=== PATIENT | male | born 1995 | race Caucasian/White ===

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

== ENCOUNTER 2017-01-06 08:26 | Emergency (ER) | payer OTHER ==
[2017-01-06 08:40] VITALS: BP 142/88
--- NOTE | 2017-01-06 08:53 | UC ---
Throat Pain/Nasal Kyle HPI - HPI Summary HPI Summary: 21 year old male with sinus pressure. COUGH AND SORE THROAT SINCE Tuesday. RIGHT earache/feels clogged since yesterday. Denies fever/chills. Taking ibuprofen 800mg prn, last dose yesterday 1600 and using nasal decongestant prn. Pt states he finished taking keflex abx 2 days ago, tx for tooth infection. Has had some ear pressure and cough. People at work with colds. [ End ] - History of Current Complaint Chief Complaint: UCRespiratory Stated Complaint: COUGH,BILATERAL EAR COMPLAINT Time Seen by Provider: 01/06/17 08:44 Hx Obtained From: Patient Onset/Duration: Gradual Onset - Allergies/Home Medications Allergies/Adverse Reactions: Allergies Allergy/AdvReac Type Severity Reaction Status Date / Time Bee Venom Allergy Anaphylatic Verified 01/06/17 08:32 Shock PMH/Surg Hx/FS Hx/Imm Hx Previously Healthy: Yes - Surgical History Surgical History: Yes Surgery Procedure, Year, and Place: VSD repair 2009 - Family History Known Family History: Negative: Cardiac Disease, Hypertension - Social History Occupation: Employed Full-time Lives: With Family Alcohol Use: None Substance Use Type: None Smoking Status (MU): Never Smoked Tobacco - Immunization History Most Recent Influenza Vaccination: NONE 2016 Most Recent Tetanus Shot: UTD Most Recent Pneumonia Vaccination: N/A Review of Systems Constitutional: Fatigue ENT: Sore Throat, Ear Ache, Nasal Discharge, Sinus Congestion, Sinus Pain/ Tenderness Respiratory: Cough All Other Systems Reviewed And Are Negative: Yes Physical Exam Triage Information Reviewed: Yes Appearance: Well-Appearing, No Pain Distress, Well-Nourished Vital Signs: Initial Vital Signs Temp 98.5 F 01/06/17 08:33 Pulse 93 01/06/17 08:33 Resp 18 01/06/17 08:33 BP 142/88 01/06/17 08:33 Pulse Ox 99 01/06/17 08:33 Vital Signs Reviewed: Yes Eye Exam: Normal ENT Exam: Normal Dental Exam: Normal Neck exam: Normal Neck: Positive: 1 Respiratory Exam: Normal Cardiovascular Exam: Normal Musculoskeletal Exam: Normal Neurological Exam: Normal Psychological Exam: Normal Skin Exam: Normal Throat Pain/Nasal Course/Dx - Course Course Of Treatment: appears viral at this time. nofever. just finished the keflex for his tooth pain which is now resolved - Differential Dx/Diagnosis Differential Diagnosis/HQI/PQRI: Otitis Media, Pharyngitis, Sinusitis, URI Provider Diagnoses: Upper Respiratory Infection Discharge - Discharge Plan Condition: Good Disposition: HOME Prescriptions: Benzonatate [TESSALON 200 MG CAP] 200 mg PO TID #20 cap Patient Education Materials: Upper Respiratory Infection (ED) Forms: *Work Release Referrals: No Primary Care Phys,NOPCP [Primary Care Provider] - 4 Days (if not better) Additional Instructions: Please consider claritin and flonase in the morning and benadryl with Netti Pot in the PM.
== END 2017-01-06 09:14 | disposition home or self-care (01) ==
LOC: UCCORT 08:26
DX: J06.9 Acute upper respiratory infection, unspecified (principal); Z91.030 Bee allergy status
CPT/HCPCS: 99212; G0463

== ENCOUNTER 2018-06-13 17:53 | Emergency (ER) | payer OTHER ==
[2018-06-13 18:02] VITALS: BP 150/85
[2018-06-13 18:32] LABS: Influenza A Molecular NEGATIVE (Negative); Influenza B Molecular NEGATIVE (Negative)
--- NOTE | 2018-06-13 19:13 | UC ---
Respiratory Complaint HPI - HPI Summary HPI Summary: 23 yo male with the onset of vomiting and cough yesterday vomiting stopped but cough has persisted not productive no f/c CP (substernal) with cough no wheeze no myalgias or headache has post nasal drip - History of Current Complaint Chief Complaint: UCRespiratory Stated Complaint: CHEST PAIN/COUGH Time Seen by Provider: 06/13/18 18:10 Hx Obtained From: Patient Onset/Duration: Gradual Onset, Lasting Days Timing: Constant Severity Initially: Mild Severity Currently: Moderate Pain Intensity: 2 Pain Scale Used: 0-10 Numeric Character: Cough: Nonproductive Aggravating Factors: Deep Breaths, Other - talking Associated Signs And Symptoms: Positive: Edema - has long history of mild pretial edema, Nasal Congestion. Negative: Dyspnea, Fever, Chills, Pleuritic Chest Pain, Wheezing, Hemoptysis, Dizziness, Calf Pain, Calf Swelling, Hoarseness, Sinus Discomfort - Allergies/Home Medications Allergies/Adverse Reactions: Allergies Allergy/AdvReac Type Severity Reaction Status Date / Time bee venom protein (honey bee) Allergy Anaphylatic Verified 06/13/18 17:59 Shock PMH/Surg Hx/FS Hx/Imm Hx Previously Healthy: Yes Cardiovascular History: Other Other Cardiovascular History: VSD repair Respiratory History: Bronchitis - Surgical History Surgical History: Yes Surgery Procedure, Year, and Place: VSD repair 2009 - Family History Known Family History: Negative: Cardiac Disease, Hypertension - Social History Alcohol Use: None Substance Use Type: None Smoking Status (MU): Never Smoked Tobacco - Immunization History Most Recent Influenza Vaccination: NONE 2016 Most Recent Tetanus Shot: UTD Most Recent Pneumonia Vaccination: N/A Review of Systems All Other Systems Reviewed And Are Negative: Yes Constitutional: Positive: Negative Skin: Positive: Negative Eyes: Positive: Negative ENT: Positive: Other - PND Respiratory: Positive: Cough Cardiovascular: Positive: Negative Gastrointestinal: Positive: Negative Genitourinary: Positive: Negative Motor: Positive: Negative Neurovascular: Positive: Negative Musculoskeletal: Positive: Negative Neurological: Positive: Negative Physical Exam Triage Information Reviewed: Yes Appearance: Well-Appearing, No Pain Distress, Well-Nourished Vital Signs: Initial Vital Signs Temp 98.8 F 06/13/18 17:58 Pulse 106 06/13/18 17:58 Resp 26 06/13/18 17:58 BP 150/85 06/13/18 17:58 Pulse Ox 98 06/13/18 17:58 Eyes: Positive: Conjunctiva Clear ENT: Positive: Hearing grossly normal, Nasal congestion, TMs normal, Uvula midline. Negative: Nasal drainage, Tonsillar swelling, Tonsillar exudate, Trismus, Muffled voice, Hoarse voice, Dental tenderness, Sinus tenderness Dental Exam: Normal Neck: Positive: Supple, Nontender, No Lymphadenopathy Respiratory: Positive: Lungs clear, Normal breath sounds, No respiratory distress, No accessory muscle use Cardiovascular: Positive: RRR, No Murmur Musculoskeletal: Positive: ROM Intact, Edema @ - trace pretibial, no calf tenderness Neurological: Positive: Alert Psychological Exam: Normal Skin Exam: Normal Diagnostics - Radiology No standard instances Radiology Interpretation Completed By: ED Physician Summary of Radiographic Findings: NAD Respiratory Course/Dx - Course Course Of Treatment: POx 98% RA comment : normal/not hypoxic - Differential Dx/Diagnosis Provider Diagnosis: Cough in adult, Post-nasal drip, Elevated BP without diagnosis of hypertension Discharge - Sign-Out/Discharge Documenting (check all that apply): Patient Departure All imaging exams completed and their final reports reviewed: No - Discharge Plan Condition: Stable Disposition: HOME Prescriptions: Benzonatate CAP* [Tessalon CAP*] 100 - 200 mg PO TID PRN #28 cap PRN Reason: Cough Fluticasone NASAL SPRAY 50MCG* [Flonase NASAL SPRAY 50MCG*] 2 spray BOTH NARES BID #1 btl Patient Education Materials: Acute Cough (ED), Postnasal Drip (DC) Referrals: Flores Son PA [Physician Rn Night] - 3 Days Additional Instructions: your BP was a little high here recheck in 3 days if not better recheck sooner for fever or worsening symptoms flu test neg official XR reading pending - Billing Disposition and Condition Condition: STABLE Disposition: Home
--- NOTE | 2018-06-14 14:28 | UC ---
- Progress Note Progress Note: RADIOLOGY REPORT REVIEWED. NO EVIDENCE FOR ACTIVE CARDIOPULMONARY DISEASE. NO CHANGE IN MGMT. Course/Dx - Diagnoses Provider Diagnoses: Cough in adult, Post-nasal drip, Elevated BP without diagnosis of hypertension Discharge - Sign-Out/Discharge Documenting (check all that apply): Post-Discharge Follow Up All imaging exams completed and their final reports reviewed: Yes - Discharge Plan Condition: Stable Disposition: HOME Prescriptions: Benzonatate CAP* [Tessalon CAP*] 100 - 200 mg PO TID PRN #28 cap PRN Reason: Cough Fluticasone NASAL SPRAY 50MCG* [Flonase NASAL SPRAY 50MCG*] 2 spray BOTH NARES BID #1 btl Patient Education Materials: Acute Cough (ED), Postnasal Drip (DC) Referrals: Flores Son PA [Primary Care Provider] - 3 Days Additional Instructions: your BP was a little high here recheck in 3 days if not better recheck sooner for fever or worsening symptoms flu test neg official XR reading pending - Billing Disposition and Condition Condition: STABLE Disposition: Home
== END 2018-06-13 19:23 | disposition home or self-care (01) ==
LOC: UCCORT 17:53
DX: R05 Cough (principal); R09.82 Postnasal drip; R03.0 Elevated blood-pressure reading, without diagnosis of hypertension; R60.0 Localized edema; Z91.030 Bee allergy status
CPT/HCPCS: 71046; 99212; G0463

== ENCOUNTER 2019-06-30 15:37 | Emergency (ER) | payer OTHER ==
--- NOTE | 2019-06-30 16:53 | UC ---
Respiratory Complaint HPI - HPI Summary HPI Summary: 24-year-old male presents with 4 day history of sore throat. States over the last couple of days started developing an occasional productive cough for clear sputum. Reports frequent past infections with strep throat and has had a cough associated with this in the past. No recent travel or known contact with persons isolated for or diagnosed with COVID-19. Denies fever, chills, nasal congestion, ear pain, dysphagia, chest pain, shortness of breath, abdominal pain , nausea, or vomiting. - History of Current Complaint Chief Complaint: UCRespiratory Stated Complaint: THROAT COMPLAINT Time Seen by Provider: 06/30/19 16:12 Hx Obtained From: Patient Pain Intensity: 0 - Allergies/Home Medications Allergies/Adverse Reactions: Allergies Allergy/AdvReac Type Severity Reaction Status Date / Time bee venom protein (honey bee) Allergy Anaphylatic Verified 06/30/19 16:18 Shock Home Medications: Home Medications Benzonatate CAP* [Tessalon 100 MG CAP*] 100 mg PO TID PRN 06/30/19 [History Confirmed 06/30/19] Ibuprofen TAB* [Motrin TAB* 800 MG] 800 mg PO Q6H PRN 06/30/19 [History Confirmed 06/30/19] Pyridoxine HCl (Vitamin B6) [Vitamin B-6] 50 mg PO DAILY 06/30/19 [History Confirmed 06/30/19] PMH/Surg Hx/FS Hx/Imm Hx Previously Healthy: Yes - Denies significant PMH - Surgical History Surgical History: Yes Surgery Procedure, Year, and Place: VSD repair 2009. undesended testicle - Family History Known Family History: Negative: Cardiac Disease, Hypertension - Social History Occupation: Employed Full-time Lives: With Family Alcohol Use: None Substance Use Type: Marijuana Substance Use Comment - Amount & Last Used: occasional Smoking Status (MU): Never Smoked Tobacco - Immunization History Most Recent Influenza Vaccination: NONE 2017 Most Recent Tetanus Shot: UTD Most Recent Pneumonia Vaccination: N/A Review of Systems All Other Systems Reviewed And Are Negative: Yes Constitutional: Negative: Fever, Chills, Fatigue Skin: Negative: Rash Eyes: Negative: Drainage, Eye Redness ENT: Positive: Sore Throat. Negative: Ear Ache, Nasal Discharge, Sinus Congestion, Sinus Pain/Tenderness Respiratory: Positive: Cough. Negative: Shortness Of Breath Cardiovascular: Negative: Chest Pain Gastrointestinal: Negative: Abdominal Pain, Vomiting, Diarrhea, Nausea Genitourinary: Positive: Negative Musculoskeletal: Positive: Negative Neurological/Mental Status: Positive: Negative Is Patient Immunocompromised?: No Physical Exam - Summary Physical Exam Summary: GENERAL APPEARANCE: Well developed, well nourished, alert and cooperative, and appears to be in no acute distress. EYES: Conjunctiva clear. No drainage. EARS: External auditory canals and tympanic membranes clear, hearing grossly intact. NOSE: No nasal discharge. THROAT: Mild pharyngeal erythema. No tonsilar inflammation, swelling, exudate, or lesions. Uvula midline. NECK: Neck supple, non-tender without lymphadenopathy. CARDIAC: Normal S1 and S2. No S3, S4 or murmurs. Rhythm is regular. There is no peripheral edema, cyanosis or pallor. Extremities are warm and well perfused. Capillary refill is less than 2 seconds. Peripheral pulses intact. LUNGS: Clear to auscultation without rales, rhonchi, wheezing or diminished breath sounds. Cough not observed. ABDOMEN: Positive bowel sounds. Soft, nondistended, nontender. No guarding or rebound. No masses or hepatosplenomegally. MUSKULOSKELETAL: ROM intact to all extremities. No joint erythema or tenderness. Normal muscular development. Normal gait. SKIN: Skin normal color, texture and turgor with no lesions or eruptions. Triage Information Reviewed: Yes Vital Signs Reviewed: Yes Respiratory Course/Dx - Course Course Of Treatment: 24-year-old male presents with 4 day history of sore throat. States over the last couple of days started developing an occasional productive cough for clear sputum. Reports frequent past infections with strep throat and has had a cough associated with this in the past. No recent travel or known contact with persons isolated for or diagnosed with COVID-19. Denies fever, chills, nasal congestion, ear pain, dysphagia, chest pain, shortness of breath, abdominal pain , nausea, or vomiting. Afebrile. Mildly hypertensive and tachycardic otherwise vital signs stable. Initial history and assessment performed using telemedicine out of concern for potential COVID-19 exposure however patient's sister provides a low suspicion for this and he was taken off of isolation precautions. Patient had no nasal congestion, normal TMs, mild pharyngeal erythema without tonsillar swelling or exudate, no cervical lymphadenopathy, clear bilateral breath sounds, and otherwise unremarkable exam. Rapid strep test and rapid flu tests were negative. Reviewed results with the patient. Recommending symptomatic treatment for a viral upper respiratory infection. He is to follow-up with his primary care provider in 5-7 days if symptoms are not improving. Anticipatory guidance and warning symptoms or flu the patient. Verbalizes understanding and agrees with plan of care. - Differential Dx/Diagnosis Differential Diagnosis/HQI/PQRI: Bronchitis, Influenza, Lower Resp Infection, SARS - COVID-19, Other - Pharyngitis, tonsilitis Provider Diagnosis: URI, acute Discharge ED - Sign-Out/Discharge Documenting (check all that apply): Patient Departure All imaging exams completed and their final reports reviewed: No Studies - Discharge Plan Condition: Stable Disposition: HOME Patient Education Materials: Upper Respiratory Infection (ED) Forms: COVID-19 Eval & Not Tested Referrals: Flores Son PA [Primary Care Provider] - 5 Days Additional Instructions: Your rapid strep test and rapid flu test performed in the clinic today were negative. Your symptoms are likely from a viral infection. Viral infections do not respond to antibiotics and are limited to the treatment of symptoms. Viral infections typically run their course in 7-10 days. Drink plenty of fluids to avoid dehydration especially if you are running any fever. You may continue to use your Tessalon Perles as directed for cough. Use salt water gargles several times a day. Take over the counter acetaminophen (Tylenol) or ibuprofen (Advil, Motrin) according to directions as needed for pain or fever. You may also use Chloraseptic spray or Cepacol lonzenges according to directions which contain a numbing medication and can provide some temporary relief from your sore throat. It is extremely important at this time to be heeding the calls for social distancing. Social distancing is deliberately increasing the physical space between people to avoid spreading illness. Staying at least six feet away from other people lessens your chances of catching COVID-19. Examples of social distancing that allow you to avoid larger crowds or crowded spaces are: * Working from home instead of at the office * Switching to online classes * Visiting loved ones by electronic devices instead of in person * Cancelling or postponing conferences and large meetings Return here or follow up with your primary care provider in 5-7 days if symptoms persist. Seek immediate medical attention in the emergency room if you have fever greater than 100.5 F despite taking acetaminophen or ibuprofen, are unable to swallow or develop drooling, are unable to open your mouth fully, are unable to eat or drink, have pain that is not relieved with over the counter pain medication, or have any difficulty breathing. - Billing Disposition and Condition Condition: STABLE Disposition: Home - Attestation Statements Provider Attestation: This patient was not seen by me. I was available for consult. Chart review. MARANDA
[2019-06-30 17:04] VITALS: BP 134/83
[2019-06-30 17:12] LABS: Influenza A Molecular Negative (Negative); Influenza B Molecular Negative (Negative)
== END 2019-06-30 17:19 | disposition home or self-care (01) ==
LOC: UCCORT 15:37
DX: J06.9 Acute upper respiratory infection, unspecified (principal); Z91.030 Bee allergy status
CPT/HCPCS: 87651; 99211; G0463